=== PATIENT | female | born 1970 | race Caucasian/White ===

== ENCOUNTER → 2017-06-01 | Outpatient (CLI) | payer OTHER | LOC: FIMAGING 13:43 | PROVIDERS: ATTEND Obstetrics & Gynecology Gynecology | DX: Z12.31 Encounter for screening mammogram for malignant neoplasm of breast (principal) | CPT/HCPCS: G0202 ==

== ENCOUNTER → 2017-06-08 | Outpatient (CLI) | payer OTHER | LOC: FIMAGING 14:50 | PROVIDERS: ATTEND Obstetrics & Gynecology Gynecology | DX: R92.8 Other abnormal and inconclusive findings on diagnostic imaging of breast (principal) ==

== ENCOUNTER → 2018-06-04 | Outpatient (CLI) | payer OTHER | LOC: FIMAGING 14:28 | PROVIDERS: ATTEND Obstetrics & Gynecology Gynecology | DX: Z12.31 Encounter for screening mammogram for malignant neoplasm of breast (principal) ==